=== PATIENT | female | born 1990 | race Two or more races ===

== ENCOUNTER 2019-07-20 06:05 | Emergency (ER) | payer OTHER ==
[~2019-07-20] VITALS: Ht 157.5 cm; Wt 67.6 kg
[2019-07-20 06:11] VITALS: Ht 157.5 cm; Wt 67.6 kg
[2019-07-20 08:25] VITALS: BP 118/75
== END 2019-07-20 08:25 | disposition home or self-care (01) ==
LOC: ED 06:05
DX: S93.401A Sprain of unspecified ligament of right ankle, initial encounter (principal); X50.1XXA Overexertion from prolonged static or awkward postures, initial encounter; Y93.89 Activity, other specified; Y92.89 Other specified places as the place of occurrence of the external cause; Y99.8 Other external cause status
CPT/HCPCS: Q0092